=== PATIENT | female | born 1955 | race African-American/Black ===

== ENCOUNTER 2018-11-28 17:48 | Emergency (ER) | payer BC ==
[~2018-11-28] VITALS: Ht 180.3 cm; Wt 58.0 kg
[2018-11-28 20:23] LABS: BASOPHILS % 0.5 % (0.0-2.0); HEMATOCRIT. 37.3 % (36.0-48.0); HEMOGLOBIN. 12.5 g/dL (12.0-16.0); LYMPHOCYTES % 41.8 % (20.0-50.0); MEAN CORPUSCULAR HEMOGLOBIN 30.4 pg (28.0-32.0); MEAN CORPUSCULAR VOLUME 90.5 fL (81.0-99.0); MEAN PLATELET VOLUME 10.1 fl (7.4-10.4); MONOCYTES % 8.8 % (2.0-8.0); NEUTROPHILS % 46.9 % (40.0-76.0); PLATELET 134 x1000/uL (130-400); RED BLOOD CELL COUNT 4.12 mill/uL (4.2-5.4); RED CELL DISTRIBUTION WIDTH 12.7 % (11.6-14.6)
[2018-11-28 20:25] LABS: CHLORIDE 110 mEq/L (98-107)
[2018-11-28 22:16] VITALS: BP 125/70
== END 2018-11-28 22:27 | disposition home or self-care (01) ==
LOC: ER 17:48
DX: R60.9 Edema, unspecified (principal); F17.200 Nicotine dependence, unspecified, uncomplicated; Z90.710 Acquired absence of both cervix and uterus
CPT/HCPCS: 36415; 93971; 99284